=== PATIENT | female | born 1995 | race Hispanic/Latino ===

== ENCOUNTER 2017-01-03 12:17 | Emergency (ER) | payer SELFPAY ==
[2017-01-03 12:39] LABS: #Eosinphils 0.1 thou/uL (0.0-0.7); #Lymphocytes 1.7 thou/uL (1.20-3.40); #Monocytes 0.4 thou/uL (0.11-0.59); #Neutrophils 4.2 thou/uL (1.40-6.50); %Eosinophils 1.2 % (0.0-10.0); %Lymphocytes 27.2 % (28.0-48.0); %Monocytes 5.6 % (0.0-4.0); Hematocrit 34.6 % (36.0-47.0); Mean Platelet Volume 8.8 fL (7.4-10.4); Red Blood Cell (RBC) Count 4.83 mill/uL (4.00-5.20); White Blood Cell (WBC) Count 6.3 thou/uL (4.8-10.8)
[2017-01-03 12:57] LABS: ALT (SGPT) 17 U/L (8-55); AST (SGOT) 17 U/L (5-30); Alkaline Phosphatase 110 U/L (40-150); Anion Gap 10 mmol/L (10-20); BUN (Urea Nitrogen) 8 mg/dL (8.4-21.0); Bilirubin, Total 0.3 mg/dL (0.2-1.2); Calc. Creatinine Clearance 0 mL/min (70-130); Calcium 9.4 mg/dL (7.8-10.44); Carbon Dioxide 26 mmol/L (22-29); Chloride 105 mmol/L (98-107); Estimated GFR-MDRD Greater than 90; Globulin 3.8 g/dL (2.4-3.5); Lipase 16 U/L (8-78); Protein, Total 7.6 g/dL (6.0-8.3)
[2017-01-03 13:18] LABS: Bilirubin Negative (Negative); Blood, Urine Large (Negative); Glucose, Urine (Dipstick) Negative (Negative); Ketone, Urine Negative (Negative); Nitrite Negative (Negative); Protein, Urine (Dipstick) Negative (Neg-Trace); Urobilinogen 0.2 mg/dL (0.2-1.0)
[2017-01-03 13:20] LABS: Bacteria/HPF Rare-Few HPF (None Seen); Hyaline Casts/LPF 0-3 HYALINE CAST LPF (0-3 Hyaline); Squamous Epithelial 0-3 HPF (0-3); WBC/HPF 0-3 HPF (0-3)
--- NOTE | 2017-01-03 14:27 | ULT ---
ULTRASOUND PELVIC COMPLETE: HISTORY: Pelvic pain. COMPARISON: None. TECHNIQUE: Real-time shoemaker scale, color Doppler, and spectral analysis of the pelvis performed. Transabdominal and transvaginal approach. The patient has a history of a negative test. FINDINGS: The uterus measures 9.5 x 4.5 x 5.5 cm. Endometrial thickness is normal. There is a left ovarian cyst. The right ovary measures 3.8 x 2.9 x 2.4 cm. The left ovary measures 4.4 x 3.5 x 5.1 cm. Fluid cannot be documented to either ovary. There are bilateral ovarian cysts. IMPRESSION: Bilateral ovarian cysts. The remainder of the examination is normal. POS: [facility]
== END 2017-01-03 15:52 | disposition home or self-care (01) ==
LOC: ERS 12:17
DX: N93.8 Other specified abnormal uterine and vaginal bleeding (principal); N83.201 Unspecified ovarian cyst, right side; N83.202 Unspecified ovarian cyst, left side; F17.210 Nicotine dependence, cigarettes, uncomplicated; D64.9 Anemia, unspecified
CPT/HCPCS: 36415; 76856; 80053; 81003; 81015; 81025; 83690; 85025